=== PATIENT | male | born 1955 | race Caucasian/White ===

== ENCOUNTER 2017-01-15 08:34 | Day surgery (SDC) | payer MEDICARE, OTHER ==
[2017-01-14 14:13] VITALS: BMI 27.3
[2017-01-15 10:16] LABS: Hematocrit 46.3 % (42.0-52.0); Mean Platelet Volume 5.9 fL (7.4-10.4); Red Blood Cell (RBC) Count 4.81 mill/uL (4.70-6.10); White Blood Cell (WBC) Count 6.8 thou/uL (4.8-10.8)
[2017-01-15 10:24] LABS: PTT 33.1 SEC (22.9-36.1); Prothrombin Time 13.7 SEC (12.0-14.7)
[2017-01-15] MEDS ORDERED: Diprivan 20 ML ONE (10:30)
[2017-01-15] MEDS ORDERED: Fentanyl 100 MCG/2 ML VIAL ONE (10:30)
[2017-01-15 10:35] LABS: Anion Gap 13 mmol/L (10-20); BUN (Urea Nitrogen) 17 mg/dL (8.4-25.7); Calc. Creatinine Clearance 87 mL/min (70-130); Calcium 10.2 mg/dL (7.8-10.44); Carbon Dioxide 29 mmol/L (23-31); Chloride 100 mmol/L (98-107); Estimated GFR-MDRD 75
[2017-01-15] MEDS ORDERED: Propofol 200 MG/20 ML VIAL ONE (11:29)
[2017-01-15] MEDS ORDERED: Ondansetron HCl/PF 4 MG/2 ML Vial ONE (11:29)
[2017-01-15] MEDS ORDERED: PHENYLEPHRINE-NS 100 MCG/ML 10 ML SYRINGE ONE (11:29)
[2017-01-15] MEDS ORDERED: Lidocaine 1% w/Epinephrine 1:200K 30 ML VIAL ONE (11:29)
[2017-01-15] MEDS ORDERED: Lidocaine 2% PF 10 ML AMP (For Epidural Use) ONE (11:29)
[2017-01-15] MEDS ORDERED: Ophthalmic Irrigation Solution 15 ML ONE (12:09)
--- NOTE | 2017-01-16 09:24 | OP ---
DATE OF PROCEDURE: 01/15/2017 SURGEON: Dr. Edy Kaur PREOPERATIVE DIAGNOSIS: Basal cell carcinoma of the left nasolabial region. POSTOPERATIVE DIAGNOSES: Excision of left nasal labial malignant lesion measuring 1.5 cm. PROCEDURE PERFORMED: Excision of left nasal lesion with a nasolabial flap reconstruction mobilizing 4 cm of tissue. PROCEDURE IN DETAIL: After consent was obtained, the patient was identified, brought to the operati ng room and placed on the table in supine position. Monitored anesthesia care was delivered and the patient was positioned for surgery. The area was prepped and draped and infiltrated with 1% lidoca ine 1:10,000 epinephrine. We then made an excision of left nasolabial lesion with clear margins and clear margins were obtained. The excision measured approximately 1.5 cm. We then mobilized a sign ificant amount nasolabial tissue and made some relaxing incisions and was able to advance that tissu e in the defect and closed in a complex fashion with 5-0 Monocryl for the deep tissues and 6-0 Prole ne for the skin. Sterile dressing was applied after Steri-Strips were placed. The patient was then awakened and taken to recovery room where he remained in stable condition prior to discharge home.
--- NOTE | 2017-02-04 12:58 | OP ---
DATE OF PROCEDURE: 01/15/2017 SURGEON: Dr. Edy Kaur PREOPERATIVE DIAGNOSIS: Left basal cell carcinoma measuring 1.5 cm. POSTOPERATIVE DIAGNOSIS: Left basal cell carcinoma measuring 1.5 cm PROCEDURE PERFORMED: Excision of 2.1 cm left basal cell carcinoma with 4 centimeter nasolabial flap reconstruction. PROCEDURE IN DETAIL: After consent was obtained, the patient was identified, brought to the operati ng room and placed on the operative table in supine position. General monitored anesthesia care was delivered and the patient was positioned for surgery. This patient was prepped and draped with Bet adine and the area was infiltrated with 1% lidocaine 1:10,000 epinephrine. We then made an elliptic al incision around 1.5 cm lesion that measured approximately 2.1 cm and excised this tissue and sent for histologic evaluation. Margins were clear. We then mobilized the nasolabial flap by undermini ng the skin and making some relaxing incision along the nasal ala and nasolabial fold and advanced t hat skin into the defect. This was then sutured in place with a 5-0 Monocryl for the deep tissues, 6-0 Prolene for the skin. The patient was then awakened and taken to recovery room where he remaine d in stable condition prior to discharge home after sterile dressing was applied.
== END 2017-01-15 14:10 | disposition home or self-care (01) ==
LOC: SDC 08:34
PROVIDERS: ATTEND Specialist
PROC: 0HB1XZZ Excision of Face Skin, External Approach (ICD-10-PCS; principal; 2017-01-15)
DX: L57.0 Actinic keratosis (principal); L98.8 Other specified disorders of the skin and subcutaneous tissue; C76.8 Malignant neoplasm of other specified ill-defined sites; C76.0 Malignant neoplasm of head, face and neck; I25.10 Atherosclerotic heart disease of native coronary artery without angina pectoris; I48.91 Unspecified atrial fibrillation; I11.0 Hypertensive heart disease with heart failure; I50.9 Heart failure, unspecified; E03.9 Hypothyroidism, unspecified; E29.1 Testicular hypofunction; G47.33 Obstructive sleep apnea (adult) (pediatric); C79.89 Secondary malignant neoplasm of other specified sites; M19.90 Unspecified osteoarthritis, unspecified site; M10.9 Gout, unspecified; J45.909 Unspecified asthma, uncomplicated; Z79.01 Long term (current) use of anticoagulants; Z79.82 Long term (current) use of aspirin; Z79.899 Other long term (current) drug therapy; Z88.0 Allergy status to penicillin; Z88.8 Allergy status to other drugs, medicaments and biological substances; Z90.89 Acquired absence of other organs; Z90.79 Acquired absence of other genital organ(s); Z90.49 Acquired absence of other specified parts of digestive tract; Z98.890 Other specified postprocedural states; Z85.47 Personal history of malignant neoplasm of testis
CPT/HCPCS: 80048; 85027; 85610; 85730; 88305; 88331; 88332; J1833; J2001; J2405; J2704; J3010

== ENCOUNTER 2017-01-19 08:57 | Outpatient (CLI) | payer MEDICARE, OTHER ==
--- NOTE | 2017-01-19 10:27 | PRG ---
DATE OF SERVICE: 01/19/2017 HISTORY: Mr. Arturo Keen Jr. is a very pleasant 61-year-old gentleman who presents to the [facility] for evaluation of a wound of the left neck subsequent to pectoralis muscle myocutaneou s flap placement on 10/16/2015. Since the patient's last visit, Mr. Keen has been receiving dress ing changes of Promogran and Silverlon 3 times per week after cleansing and irrigation with the assi stance of Home Health. Mr. Keen has no complaints today. He denies any fever or chills. Since t he patient was last seen in the Wound Center, Mr. Keen has undergone excision of a basal cell carc inoma of the skin of the nose by Dr. Edy Kaur on 01/15/2017. PHYSICAL EXAMINATION: VITAL SIGNS: Temperature 98.1, pulse 79, respirations 18, and blood pressure 128/62. NECK: A wound of the left neck is present which measures approximately 2.0 x 2.8 cm. The dimension s of the wound at the time of the patient's last visit were approximately 2.4 x 1.4 cm. Nonviable t issue present within the wound margins was debrided with an excisional full-thickness debridement. Granulation tissue is visible within the wound margins. No purulent drainage is associated with the wound. No erythema of the skin surrounding the wound is present. No maceration of the skin of the periwound is noted. ASSESSMENT AND PLAN: 1. Left neck wound at the site of pectoralis muscle myocutaneous flap placement. Because of concer n of an allergy to SILVER, Silverlon will be discontinued at the time of dressing changes. Orders w ill be transmitted to Home Health for dressing changes of Promogran 3 times per week after cleansing and irrigation with the assistance of Home Health. I will see Mr. Keen again in 2 weeks. 2. Asthma/reactive airway disease. 3. Low back pain. 4. Testicular carcinoma, status post chemotherapy. 5. Cardiomyopathy. 6. Hypertension. 7. Obstructive sleep apnea. 8. Hypothyroidism. 9. Atrial fibrillation. 10. Coronary artery disease. 11. Benign prostatic hypertrophy. 12. Squamous cell carcinoma, status post radiation therapy.
[2017-01-19] MEDS ORDERED: Sodium Chloride 0.9% 15 ML NEB ONE (17:00)
== END 2017-01-19 08:58 | disposition home or self-care (01) ==
LOC: WCC 08:57
PROVIDERS: ATTEND Family Medicine
DX: T81.89XD Other complications of procedures, not elsewhere classified, subsequent encounter (principal); C62.90 Malignant neoplasm of unspecified testis, unspecified whether descended or undescended; I25.10 Atherosclerotic heart disease of native coronary artery without angina pectoris; I48.91 Unspecified atrial fibrillation; J45.909 Unspecified asthma, uncomplicated; E03.9 Hypothyroidism, unspecified; G47.33 Obstructive sleep apnea (adult) (pediatric); N40.0 Benign prostatic hyperplasia without lower urinary tract symptoms; I42.9 Cardiomyopathy, unspecified; I10 Essential (primary) hypertension; M54.5 Low back pain; C80.1 Malignant (primary) neoplasm, unspecified; Z92.21 Personal history of antineoplastic chemotherapy; Z92.3 Personal history of irradiation
CPT/HCPCS: 11042; A4218

== ENCOUNTER 2017-02-02 09:41 | Outpatient (CLI) | payer MEDICARE, OTHER ==
--- NOTE | 2017-02-02 11:02 | PRG ---
DATE OF SERVICE: 02/02/2017 HISTORY: Mr. Arturo Keen Jr. is a very pleasant 61-year-old gentleman who presents to the Wound Center for evaluation of a wound of the left neck subsequent to pectoralis muscle myocutaneou s flap placement on 10/16/2015. Since the patient's last visit, Mr. Keen has been receiving dress ing changes of Promogran 3 times per week after cleansing and irrigation with the assistance of Home Health. The patient has no complaints today. He denies any fever or chills. The patient recently underwent excision of a basal cell carcinoma of the skin of the nose by Dr. Edy Mas on 2016. PHYSICAL EXAMINATION: VITAL SIGNS: Temperature 98.6, pulse 73, respirations 18, blood pressure 125/60. NECK: A wound of the left neck is present which measures approximately 2.0 x 4.0 cm. The dimension s of the wound at the time of the patient's last visit were approximately 2.0 x 2.8 cm. Nonviable t issue present within the wound margins was debrided with an excisional full-thickness debridement. Granulation tissue is visible within the wound margins. No purulent drainage is associated with the wound. No erythema of the skin surrounding the wound is present. No maceration of the skin of the periwound is noted. ASSESSMENT AND PLAN: 1. Left neck wound at the site of pectoralis muscle myocutaneous flap placement. Dressing changes of Promogran will be discontinued. Dressing changes of Multidex powder followed by an ABD secured w ith tape will be initiated today. These dressing changes are to be performed on a daily basis after cleansing and irrigation with the assistance of Home Health for the next 2 weeks. I will see Mr. Montrell dash again in 2 weeks. 2. Asthma/reactive airway disease. 3. Low back pain. 4. Testicular carcinoma, status post chemotherapy. 5. Cardiomyopathy. 6. Hypertension. 7. Obstructive sleep apnea. 8. Hypothyroidism. 9. Atrial fibrillation. 10. Coronary artery disease. 11. Benign prostatic hypertrophy. 12. Squamous cell carcinoma, status post radiation therapy.
[2017-02-02] MEDS ORDERED: Sodium Chloride 0.9% 15 ML NEB ONE (17:24)
== END 2017-02-02 09:42 | disposition home or self-care (01) ==
LOC: WCC 09:41
PROVIDERS: ATTEND Family Medicine
DX: S11.90XD Unspecified open wound of unspecified part of neck, subsequent encounter (principal); I25.10 Atherosclerotic heart disease of native coronary artery without angina pectoris; J45.909 Unspecified asthma, uncomplicated; G47.33 Obstructive sleep apnea (adult) (pediatric); I10 Essential (primary) hypertension; I48.91 Unspecified atrial fibrillation; E03.9 Hypothyroidism, unspecified; I42.9 Cardiomyopathy, unspecified; N40.0 Benign prostatic hyperplasia without lower urinary tract symptoms
CPT/HCPCS: 11042; A4218

== ENCOUNTER 2017-02-16 07:51 | Outpatient (CLI) | payer MEDICARE, OTHER ==
--- NOTE | 2017-02-16 10:12 | PRG ---
DATE OF SERVICE: 02/16/2017 HISTORY: Mr. Arturo Keen is a very pleasant 61-year-old gentleman who presents to the Wound Cent er for evaluation of a wound of the left neck subsequent to pectoralis muscle myocutaneous flap plac ement on 10/16/2015. Since the patient's last visit, Mr. Keen has been receiving dressing changes of Multidex powder 3 times per week after cleansing and irrigation with the assistance of Home [facility]. The patient has no complaints today. He denies any fever or chills. The patient recently unde rwent excision of basal cell carcinoma of the skin of the nose by Dr. Edy Kaur on 01/15/2017. PHYSICAL EXAMINATION: VITAL SIGNS: Temperature 98.3, pulse 75, respirations 18, blood pressure 115/55. NECK: A wound of the left neck is present, which measures approximately 7.5 x 11.5 cm. Granulation tissue is visible within the wound margins. Nonviable tissue present within the wound margins was debrided with an excisional full-thickness debridement. No purulent drainage is associated with the wound. No erythema of the skin surrounding the wound is present. No maceration of the skin of the periwound is noted. ASSESSMENT AND PLAN: 1. Left neck wound at the site of pectoralis muscle myocutaneous flap placement. Dressing changes of Multidex powder will be discontinued. Dressing changes of Adaptic followed by an ABD secured wit h tape will be initiated today. These dressing changes are to be performed 3 times per week after c leansing and irrigation with the assistance of Home Health for the next 2 weeks. I will see Mr. Eugene galeana again in 2 weeks. 2. Asthma/reactive airway disease. 3. Low back pain. 4. Testicular carcinoma, status post chemotherapy. 5. Cardiomyopathy. 6. Hypertension. 7. Obstructive sleep apnea. 8. Hypothyroidism. 9. Atrial fibrillation. 10. Coronary artery disease. 11. Benign prostatic hypertrophy. 12. Squamous cell carcinoma, status post radiation therapy.
[2017-02-16] MEDS ORDERED: Sodium Chloride 0.9% 15 ML NEB ONE (17:06)
== END 2017-02-16 07:52 | disposition home or self-care (01) ==
LOC: WCC 07:51
PROVIDERS: ATTEND Family Medicine
DX: S11.90XD Unspecified open wound of unspecified part of neck, subsequent encounter (principal); J45.909 Unspecified asthma, uncomplicated; C62.90 Malignant neoplasm of unspecified testis, unspecified whether descended or undescended; I42.9 Cardiomyopathy, unspecified; I10 Essential (primary) hypertension; G47.33 Obstructive sleep apnea (adult) (pediatric); E03.9 Hypothyroidism, unspecified; N40.0 Benign prostatic hyperplasia without lower urinary tract symptoms; I48.91 Unspecified atrial fibrillation; I25.10 Atherosclerotic heart disease of native coronary artery without angina pectoris; C80.1 Malignant (primary) neoplasm, unspecified
CPT/HCPCS: A4218

== ENCOUNTER 2017-03-02 07:48 | Outpatient (CLI) | payer MEDICARE, OTHER ==
--- NOTE | 2017-03-02 09:16 | PRG ---
DATE OF SERVICE: 03/02/2017 HISTORY: Mr. Arturo Keen is a very pleasant 61-year-old gentleman who presents to the Wound Cent er for evaluation of a wound of the left neck subsequent to pectoralis muscle myocutaneous flap plac ement on 10/16/2015. Since the patient's last visit, Mr. Keen had been receiving dressing changes of Adaptic 3 times per week after cleansing and irrigation with the assistance of Home Health. The patient states that he is to be seen at [facility] next week. The patient underwent excision of basal cell carcinoma of the skin of the nose by Dr. Edy Kaur on 01/15/2017. PHYSICAL EXAMINATION: VITAL SIGNS: Temperature 98.2, pulse 86, respirations 18, blood pressure 109/58. NECK: A wound of the left neck is present which measures approximately 8.1 x 12.0 cm. The dimensio ns of the wound at the time of the patient's last visit were approximately 7.5 x 11.5 cm. Granulati on tissue is visible within the wound margins. No purulent drainage is associated with the wound. No erythema of the skin surrounding the wound is present. No maceration of the skin of the periwoun d is noted. ASSESSMENT AND PLAN: 1. Left neck wound at the site of pectoralis muscle myocutaneous flap placement. Dressing changes of Adaptic will be discontinued. Dressing changes of Hydrofera Blue followed by an ABD secured with tape will be initiated today. These dressing changes are to be performed on a daily basis after cl eansing and irrigation with the assistance of Home Health until the patient is seen at [facility] . I will see Mr. Keen again after he is seen at [facility] and any treatment initiated. 2. Asthma/reactive airway disease. 3. Low back pain. 4. Testicular carcinoma, status post chemotherapy. 5. Cardiomyopathy. 6. Hypertension. 7. Obstructive sleep apnea. 8. Hypothyroidism. 9. Atrial fibrillation. 10. Coronary artery disease. 11. Benign prostatic hypertrophy. 12. Squamous cell carcinoma, status post radiation therapy.
[2017-03-02] MEDS ORDERED: Sodium Chloride 0.9% 15 ML NEB ONE (22:48)
== END 2017-03-02 07:49 | disposition home or self-care (01) ==
LOC: WCC 07:48
PROVIDERS: ATTEND Family Medicine
DX: T81.89XD Other complications of procedures, not elsewhere classified, subsequent encounter (principal); C62.90 Malignant neoplasm of unspecified testis, unspecified whether descended or undescended; C80.1 Malignant (primary) neoplasm, unspecified; I42.9 Cardiomyopathy, unspecified; J45.909 Unspecified asthma, uncomplicated; M54.5 Low back pain; I10 Essential (primary) hypertension; G47.33 Obstructive sleep apnea (adult) (pediatric); E03.9 Hypothyroidism, unspecified; I48.91 Unspecified atrial fibrillation; I25.10 Atherosclerotic heart disease of native coronary artery without angina pectoris; N40.0 Benign prostatic hyperplasia without lower urinary tract symptoms; Z92.21 Personal history of antineoplastic chemotherapy; Z92.3 Personal history of irradiation
CPT/HCPCS: 97602; A4218

== ENCOUNTER 2017-03-05 06:00 | Day surgery (SDC) | payer MEDICARE, OTHER ==
[2017-03-04 13:58] VITALS: BMI 27.3
[2017-03-05] MEDS ORDERED: Midazolam HCl 2 mg/2 ml Vial ONE (06:28)
[2017-03-05] MEDS ORDERED: Fentanyl 100 MCG/2 ML VIAL ONE (06:28)
[2017-03-05] MEDS ORDERED: Heparin 5,000 UNITS/ML VIAL ONE (06:43)
[2017-03-05] MEDS ORDERED: Bupivacaine/Epinephrine 0.25% 30 ML VIAL ONE (06:43)
[2017-03-05] MEDS ORDERED: Levofloxacin 500 mg/D5W 100 ml Premix Bag ONE (06:45)
[2017-03-05 06:49] LABS: #Eosinphils 0.1 thou/uL (0.0-0.7); #Lymphocytes 0.5 thou/uL (1.20-3.40); #Monocytes 0.4 thou/uL (0.11-0.59); #Neutrophils 2.3 thou/uL (1.40-6.50); %Basophils 0.9 % (0.0-1.0); %Eosinophils 2.6 % (0.0-10.0); %Lymphocytes 14.1 % (21.0-51.0); %Monocytes 13.2 % (0.0-10.0); Hematocrit 38.6 % (42.0-52.0); Mean Platelet Volume 5.6 fL (7.4-10.4); Red Blood Cell (RBC) Count 3.99 mill/uL (4.70-6.10); White Blood Cell (WBC) Count 3.4 thou/uL (4.8-10.8)
[2017-03-05 07:02] LABS: Anion Gap 10 mmol/L (10-20); BUN (Urea Nitrogen) 18 mg/dL (8.4-25.7); Calc. Creatinine Clearance 92 mL/min (70-130); Calcium 9.8 mg/dL (7.8-10.44); Carbon Dioxide 29 mmol/L (23-31); Chloride 97 mmol/L (98-107); Estimated GFR-MDRD 80
[2017-03-05] MEDS ORDERED: Lidocaine 1% PF 5 ML VIAL ONE (07:55)
[2017-03-05] MEDS ORDERED: Propofol 200 MG/20 ML VIAL ONE (07:55)
--- NOTE | 2017-03-05 09:23 | RAD ---
FRONTAL VIEW CHEST SERIES: COMPARISON: 05/28/14. CLINICAL HISTORY: MediPort placement. FINDINGS: Right-sided venous chest port has been placed with tip overlying SVC region. There is right-sided pl eural fluid at the anterior hemithorax and traversing along the pulmonary fissure. There is asymmetr ic increased interstitial prominence of the right lung with superimposed patchy alveolar opacificatio n. There remains elevation of the left hemidiaphragm. Cardiomediastinal silhouette is stable, promi nent in size with evidence of vascular congestion. IMPRESSION: 1. Right-side MediPort placement without discrete pneumothorax. 2. There is right-side pleural fluid and asymmetric interstitial reticulonodular/patchy alveolar opa cification. This could be on the basis of atypical pneumonia or asymmetric edema. [facility] POS: [facility]
--- NOTE | 2017-03-06 22:08 | PDOC.OP ---
Operative Note - Operative Note Operative Note: PROCEDURE: Right internal jugular MediPort placement with ultrasound and fluoroscopic guidance SURGEON: Jenniffer Knowles M.D. DATE OF PROCEDURE: 03/05/2017 PREOPERATIVE DIAGNOSIS: Metastatic squamous cell carcinoma of the skin POSTOPERATIVE DIAGNOSIS: Metastatic squamous cell carcinoma of the skin HISTORY: Patient is diagnosed with metastatic squamous cell carcinoma of the skin. Chemotherapy has been recommended and the oncologist has requested MediPort placement for this. OPERATIVE PROCEDURE IN DETAIL: After informed consent was obtained and appropriate preoperative antibiotics were administered, the patient was taken to the operating room and placed in supine position and monitored anesthesia care was administered. The patient was then placed in Trendelenburg position and the right internal jugular vein accessed easily under direct ultrasonographic guidance on the first attempt with excellent flow of dark venous non-pulsatile blood. A wire threaded easily and was confirmed to be in the superior vena cava by fluoroscopy. Additional local anesthesia was infused to the skin and subcutaneous tissues of the neck and chest and the patient's previous Mediport incision re-incised and a subcutaneous pocket developed inferiorly. A Mediport was obtained and confirmed to fit in the subcutaneous pocket. This was secured inferiorly to the pectoralis fascia with a Prolene suture, which was clamped, but not tied. The tubing was tunneled from the Mediport site to the right IJ access site. The dilator and sheath were then placed over the wire and the dilator and wire removed leaving the sheath in place. The clamped MediPort tubing was tunneled through the sheath, which was then split and removed leaving the MediPort tubing in place. The tubing was adjusted until the tip was confirmed by fluoroscopy to be in the superior vena cava just above the atrium. The tubing was clamped at the skin level and cut and the tubing secured to the port, which was then placed in the subcutaneous pocket. The previously placed suture was secured and two additional sutures were placed to fix the port in place within the pocket. The port was aspirated with the Aparicio needle and had excellent flow of dark venous non-pulsatile blood and easily flushed without resistance. The subcutaneous tissues were closed with a running Monocryl suture, following which the skin was closed with a running subcuticular Monocryl suture. Dermabond dressings were placed and the hub was again accessed through the skin and confirmed to easily aspirate and easily flush. This Aparicio needle was left in place with a sterile dressing for chemotherapy use later that day. The course of the catheter was confirmed by fluoroscopy to be smooth with the tip appropriately located in the superior vena cava. The patient was taken her back to the day stay unit in good condition. Estimated blood loss was minimal. There were no complications. There were no specimens.
== END 2017-03-05 09:40 | disposition home or self-care (01) ==
LOC: SDC 06:00
PROVIDERS: ATTEND Surgery
PROC: 05HM33Z Insertion of Infusion Device into Right Internal Jugular Vein, Percutaneous Approach (ICD-10-PCS; principal; 2017-03-05)
DX: C44.92 Squamous cell carcinoma of skin, unspecified (principal); I25.10 Atherosclerotic heart disease of native coronary artery without angina pectoris; I48.91 Unspecified atrial fibrillation; E78.5 Hyperlipidemia, unspecified; I11.0 Hypertensive heart disease with heart failure; I50.9 Heart failure, unspecified; E03.9 Hypothyroidism, unspecified; Z88.0 Allergy status to penicillin; Z88.1 Allergy status to other antibiotic agents; Z88.8 Allergy status to other drugs, medicaments and biological substances; Z98.890 Other specified postprocedural states
CPT/HCPCS: 36561; 71010; 80048; 85025; C1788; J0131; J1642; J1644; J1956; J2001; J2250; J2704; J3010

== ENCOUNTER 2017-03-16 19:08 | Emergency (ER) | payer MEDICARE, OTHER ==
--- NOTE | 2017-03-16 19:58 | RAD ---
CHEST: Date: 03/16/17 HISTORY: Emergency exam. Fever. COMPARISON: Chest 1 view dated 03/05/17. FINDINGS: There is redistribution of the layering right pleural effusion. Port catheter tip in similar position . Chronic elevation left hemidiaphragm. IMPRESSION: 1. Redistribution of the layering right pleural effusion. 2. Possible right lower lobe air space opacity may represent infection or compressive atelectasis. F ollow-up recommended. POS: [facility]
[2017-03-16 20:18] LABS: #Lymphocytes 0.4 thou/uL (1.20-3.40); #Monocytes 0.3 thou/uL (0.11-0.59); #Neutrophils 1.6 thou/uL (1.40-6.50); %Basophils 2.1 % (0.0-1.0); %Eosinophils 1.3 % (0.0-10.0); %Lymphocytes 16.5 % (21.0-51.0); %Monocytes 10.8 % (0.0-10.0); Hematocrit 31.7 % (42.0-52.0); Red Blood Cell (RBC) Count 3.42 mill/uL (4.70-6.10); White Blood Cell (WBC) Count 2.3 thou/uL (4.8-10.8)
[2017-03-16] MEDS ORDERED: Cefepime 1 GM VIAL ONE (20:33)
[2017-03-16] MEDS ORDERED: methylPREDNISolone Sod Succ/PF 125 MG/2 ML VIAL ONE (20:33)
[2017-03-16 20:35] LABS: ALT (SGPT) 15 U/L (8-55); AST (SGOT) 18 U/L (5-34); Alkaline Phosphatase 94 U/L (40-150); Anion Gap 12 mmol/L (10-20); BUN (Urea Nitrogen) 24 mg/dL (8.4-25.7); Bilirubin, Total 0.6 mg/dL (0.2-1.2); Calc. Creatinine Clearance 0 mL/min (70-130); Calcium 9.3 mg/dL (7.8-10.44); Carbon Dioxide 28 mmol/L (23-31); Chloride 95 mmol/L (98-107); Estimated GFR-MDRD 57; Globulin 3.1 g/dL (2.4-3.5); Protein, Total 6.6 g/dL (5.8-8.1)
[2017-03-16] MEDS ORDERED: Sodium Chloride 0.9% 100 ML ONE (20:35)
== END 2017-03-16 21:57 | disposition home or self-care (01) ==
LOC: SCSER 19:08
DX: J44.0 Chronic obstructive pulmonary disease with (acute) lower respiratory infection (principal); J18.9 Pneumonia, unspecified organism; J44.1 Chronic obstructive pulmonary disease with (acute) exacerbation; J20.9 Acute bronchitis, unspecified; I50.9 Heart failure, unspecified; E03.9 Hypothyroidism, unspecified; I48.91 Unspecified atrial fibrillation; I25.10 Atherosclerotic heart disease of native coronary artery without angina pectoris
CPT/HCPCS: 36415; 71020; 80053; 85025; 87040; 87070; 87205; 96365; 96367; 96375; J0692; J2930; J3370; J7050; J7620

== ENCOUNTER 2017-05-13 08:22 | Day surgery (SDC) | payer MEDICARE, OTHER ==
[2017-05-13] MEDS ORDERED: Acetaminophen 500 MG TAB PO SCH (08:45)
[2017-05-13] MEDS ORDERED: diphenhydrAMINE 25 MG CAP PO SCH (08:45)
[2017-05-13 15:00] VITALS: BP 118/58; TEMP 99.1
[2017-05-13 15:18] LABS: #Eosinphils 0.1 thou/uL (0.0-0.7); #Lymphocytes 0.5 thou/uL (1.20-3.40); #Monocytes 0.3 thou/uL (0.11-0.59); #Neutrophils 1.7 thou/uL (1.40-6.50); %Basophils 0.7 % (0.0-1.0); %Eosinophils 2.1 % (0.0-10.0); %Lymphocytes 20.5 % (21.0-51.0); %Monocytes 9.8 % (0.0-10.0); %Neutrophils 66.9 % (42.0-75.0); Hemoglobin 9.6 g/dL (14.0-18.0); Mean Corpuscular HGB CONC 35.6 g/dL (32.0-36.0); Mean Platelet Volume 8.2 fL (7.4-10.4); Platelet Count 61 thou/uL (130-400); RBC Distribution Width 17.8 % (11.5-14.5); Red Blood Cell (RBC) Count 2.66 mill/uL (4.70-6.10); White Blood Cell (WBC) Count 2.5 thou/uL (4.8-10.8)
[2017-05-13 16:21] LABS: Anisocytosis MODERATE=16-30 cells (100X) (0-5/hpf); MDiff Complete? YES; Macrocytosis SLIGHT = 6-15 cells (100X) (0-5/hpf); Ovalocytes SLIGHT = 2-5 cells (100X) (0-1/hpf); PLT Morphology Comment Appears Decreased; Polychromasia SLIGHT = 2-3 cells (100X) (0-2/hpf)
== END 2017-05-13 14:50 | disposition home or self-care (01) ==
LOC: ONC/OP 08:22
PROVIDERS: ATTEND Internal Medicine Hematology & Oncology
PROC: 30233N1 Transfusion of Nonautologous Red Blood Cells into Peripheral Vein, Percutaneous Approach (ICD-10-PCS; principal; 2017-05-13)
DX: D64.9 Anemia, unspecified (principal); D69.59 Other secondary thrombocytopenia; Z88.0 Allergy status to penicillin; Z88.1 Allergy status to other antibiotic agents; Z88.8 Allergy status to other drugs, medicaments and biological substances
CPT/HCPCS: 36430; 85025; 86850; 86900; 86901; P9016

== ENCOUNTER 2017-05-16 00:20 | Observation (INO) | payer MEDICARE, OTHER ==
[2017-05-16] MEDS ORDERED: Oxymetazoline HCl 0.05% ( 15 ML ) ONE (00:40)
[2017-05-16 01:16] LABS: Hemoglobin 9.7 g/dL (14.0-18.0); Mean Corpuscular HGB CONC 33.6 g/dL (32.0-36.0); Mean Corpuscular Hemoglobin 32.8 pg (27.0-31.0); Mean Corpuscular Volume 97.7 fl (80.0-94.0); Mean Platelet Volume 7.5 fL (7.4-10.4); Platelet Count 64 thou/uL (130-400); RBC Distribution Width 16.7 % (11.5-14.5); Red Blood Cell (RBC) Count 2.96 mill/uL (4.70-6.10); White Blood Cell (WBC) Count 2.5 thou/uL (4.8-10.8)
[2017-05-16 01:24] LABS: INR-International Normal Ratio 2.3; Prothrombin Time 25.8 SEC (12.0-14.7)
[2017-05-16 01:28] LABS: #Basophils 0.1 thou/uL (0.0-0.2); #Eosinphils 0.1 thou/uL (0.0-0.7); #Lymphocytes 0.5 thou/uL (1.20-3.40); #Monocytes 0.3 thou/uL (0.11-0.59); #Neutrophils 1.6 thou/uL (1.40-6.50); %Basophils 2.8 % (0.0-1.0); %Eosinophils 2.2 % (0.0-10.0); %Lymphocytes 18.3 % (21.0-51.0); %Monocytes 11.2 % (0.0-10.0); %Neutrophils 65.6 % (42.0-75.0); Anisocytosis SLIGHT = 6-15 cells (100X) (0-5/hpf); Hypochromia SLIGHT = 6-15 cells (100X) (0-5/hpf); MDiff Complete? YES; PLT Morphology Comment Appears Decreased
[2017-05-16 01:29] LABS: ALT (SGPT) 11 U/L (8-55); AST (SGOT) 14 U/L (5-34); Alkaline Phosphatase 97 U/L (40-150); Anion Gap 16 mmol/L (10-20); BUN (Urea Nitrogen) 20 mg/dL (8.4-25.7); Calcium 9.5 mg/dL (7.8-10.44); Carbon Dioxide 24 mmol/L (23-31); Chloride 101 mmol/L (98-107); Glucose 99 mg/dL (80-115); Potassium 4.2 mmol/L (3.5-5.1); Protein, Total 7.1 g/dL (5.8-8.1); Sodium 137 mmol/L (136-145)
[2017-05-16 01:40] LABS: Albumin 3.6 g/dL (3.4-4.8); Bilirubin, Total 0.5 mg/dL (0.2-1.2); Calc. Creatinine Clearance 0 mL/min (70-130); Estimated GFR-MDRD 68; Globulin 3.5 g/dL (2.4-3.5)
[2017-05-16] MEDS ORDERED: Ondansetron HCl/PF 4 MG/2 ML Vial ONE (02:22)
[2017-05-16] MEDS ORDERED: Fentanyl 100 MCG/2 ML VIAL ONE (02:22)
[2017-05-16] MEDS ORDERED: Ondansetron HCl/PF 4 MG/2 ML Vial IVP PRN ×2 (04:48→11:56)
[2017-05-16] MEDS ORDERED: Ondansetron ODT 4 MG TAB SL PRN (04:48)
[2017-05-16] MEDS ORDERED: Acetaminophen 325 MG TAB PO PRN (04:48)
[2017-05-16 04:54] VITALS: BMI 26.9
[2017-05-16] MEDS ORDERED: PROVENTIL INHALER 6.7 G (200 INHALATIONS) INH PRN (11:56)
[2017-05-16] MEDS ORDERED: hydrALAZINE 20 MG/ML VIAL SLOW IVP PRN (11:56)
[2017-05-16] MEDS ORDERED: cloNIDine 0.1 MG TAB PO PRN (11:56)
[2017-05-16] MEDS ORDERED: Acetaminophen 500 MG TAB PO PRN (11:56)
[2017-05-16] MEDS ORDERED: Ondansetron ODT 4 MG TAB PO PRN (11:56)
[2017-05-16 13:05] LABS: Hemoglobin 9.1 g/dL (14.0-18.0); Mean Corpuscular HGB CONC 34.9 g/dL (32.0-36.0); Mean Corpuscular Hemoglobin 35.9 pg (27.0-31.0); Mean Platelet Volume 8.3 fL (7.4-10.4); Platelet Count 57 thou/uL (130-400); RBC Distribution Width 17.9 % (11.5-14.5); Red Blood Cell (RBC) Count 2.52 mill/uL (4.70-6.10); White Blood Cell (WBC) Count 2.4 thou/uL (4.8-10.8)
[2017-05-16 13:18] LABS: Anisocytosis MODERATE=16-30 cells (100X) (0-5/hpf); Band 6 % (5-11); Elliptocytes SLIGHT = 2-5 cells (100X) (0-1/hpf); Eosinophils 1 % (0-10); Lymphocytes 15 % (21-51); MDiff Complete? YES; Macrocytosis SLIGHT = 6-15 cells (100X) (0-5/hpf); Monocytes 16 % (0-10); Neutrophil 59 % (42-75); Ovalocytes SLIGHT = 2-5 cells (100X) (0-1/hpf); PLT Morphology Comment Appears Decreased; Polychromasia SLIGHT = 2-3 cells (100X) (0-2/hpf); Reactive Lymphocytes 3 % (0-10)
[2017-05-16] MEDS: Fentanyl 100 MCG/2 ML VIAL SLOW IVP PRN ×2 (14:31→20:43)
--- NOTE | 2017-05-16 15:21 | HP ---
DATE OF ADMISSION: 05/16/2017 PRIMARY CARE PROVIDER: Ulises broderick. CHIEF COMPLAINT: Nosebleed. HISTORY OF PRESENT ILLNESS: This is a 61-year-old male who presented to [facility] Emergency Department complaining of sudden spontaneous nose bleeding which began appr oximately 2300 on 05/15/2017. The patient's history is significant for chronic anticoagulation with Xarelto with a history of prior atrial fibrillation, status post cardiac ablation x6. The patient al so on chronic aspirin 81 mg daily as well as receiving chemotherapy for metastatic squamous cell carc inoma of the head and neck. The patient states he completed his last chemotherapy within the last we ek and a half and took last dose of Xarelto approximately 2000 p.m. on 05/15/2017. The patient state s the nosebleed was significant and prompting him to seek medical attention. The patient was evaluat ed in the emergency room, undergoing topical treatment with Mo-Synephrine without resolution. The p atient was evaluated by the ENT Service in the emergency room, undergoing anterior and posterior nasa l packing with Surgicel and Gelfoam. The patient had hemostasis obtained in the emergency room and w as transferred to the observation unit for further evaluation. PAST MEDICAL HISTORY: 1. Chronic obstructive pulmonary disease. 2. History of atrial fibrillation, status post cardiac ablation x6 on chronic anticoagulation with X arelto. 3. Hypothyroidism. 4. Coronary artery disease. 5. Benign prostatic hyperplasia. 6. Metastatic squamous cell carcinoma of the head and neck. 7. History of testicular cancer. 8. Status post multiple blood transfusions. 9. Hypertension. 10. Congestive heart failure. 11. Hypogonadism. PAST SURGICAL HISTORY: 1. Status post left parotidectomy on 05/26/2014. 2. Status post abdominal exploration with multiple lymph node resections. 3. Status post orchiectomy. 4. Status post multiple facial excisions for skin cancer and grafting. 5. Status post left eardrum removal. 6. Status post left ear surgery for squamous cell carcinoma. 7. Status post basal cell carcinoma removal. 8. Status post MediPort placement. 9. Status post appendectomy. 10. Status post left foot surgery. CURRENT MEDICATIONS: 1. ProAir HFA 2 puffs inhaled q.4 hours p.r.n. 2. Enteric coated aspirin 81 mg 1 tab p.o. daily. 3. Lipitor 40 mg p.o. at bedtime. 4. Vitamin D3 2000 units p.o. daily. 5. Digoxin 125 mcg p.o. daily. 6. Colace 100 mg p.o. b.i.d. p.r.n. 7. Tambocor 50 mg p.o. b.i.d. 8. Breo Ellipta one inhalation daily. 9. Monopril 10 mg p.o. b.i.d. 10. Hydrocodone/acetaminophen 7.5/325 mg per 15 mL p.o. q.4 hours p.r.n. 11. DuoNebs 3 mL nebulized q.i.d. p.r.n. 12. Levothyroxine 75 mcg 1 tab p.o. daily. 13. Claritin 10 mg 1 tab p.o. daily. 14. Singulair 10 mg p.o. at bedtime. 15. Xarelto 20 mg p.o. at bedtime. 16. Bactrim-DS 1 tablet p.o. b.i.d. 17. Testosterone cypionate 200 mg intramuscularly every 14 days. 18. Demodex 20 mg p.o. q.a.m. ALLERGIES: BENZODIAZEPINES, CLINDAMYCIN, and PENICILLIN. FAMILY HISTORY: Positive for coronary artery disease. SOCIAL HISTORY: Patient resides in [place], [place]. Retired. No current alcohol, tobacco or illicit drug use. REVIEW OF SYSTEMS: The following complete review of systems was negative, unless otherwise mentioned in the HPI or below: Constitutional: Weight loss or gain, ability to conduct usual activities. Skin: Rash, itching. Eyes: Double vision, pain. ENT/Mouth: Nose bleeding, neck stiffness, pain, tenderness. Cardiovascular: Palpitations, dyspnea on exertion, orthopnea. Respiratory: Shortness of breath, wheezing, cough, hemoptysis, fever or night sweats. Gastrointestinal: Poor appetite, abdominal pain, heartburn, nausea, vomiting, constipation, or diarr hea. Genitourinary: Urgency, frequency, dysuria, nocturia. Musculoskeletal: Pain, swelling. Neurologic/Psychiatric: Anxiety, depression. Allergy/Immunologic: Skin rash, bleeding tendency. Otherwise negative except as stated per HPI. PHYSICAL EXAMINATION: VITAL SIGNS: Currently, blood pressure 119/63, pulse 93, respiratory rate is 16, temperature 98.1 de grees Fahrenheit, and O2 saturation 97% on room air. GENERAL APPEARANCE: This is a 61-year-old male, alert and oriented x3, pleasant, in no acu te distress. HEENT: Pupils are equal, round, and reactive to light and accommodation. Extraocular muscles are in tact. Postsurgical changes on the left face, head and neck region consistent with prior surgical his tory. Large wound of the left trapezius region and left neck region with wound dressings in place. Nasal packing in place with bandages showing pink discharge. OP is clear. NECK: Supple. Surgical and radiation changes noted to the left neck region. CHEST: Lungs are clear to auscultation bilaterally. CARDIOVASCULAR: S1 and S2 with distant heart sounds. Postsurgical changes noted in the left upper c hest wall and shoulder region. Right-sided MediPort in place. ABDOMEN: Rounded, soft, nontender, and nondistended. Bowel sounds are positive in all four quadrant s. No hepatosplenomegaly, no abdominal bruits, no rebound or guarding appreciated. EXTREMITIES: Warm and dry with fair turgor. No clubbing, cyanosis or asymmetric edema appreciated. Pulses palpable distally at the dorsalis pedis, posterior tibial, and popliteal arteries bilaterally . Capillary refill less than 2 seconds. NEUROLOGIC: Cranial nerves II-XII are grossly intact. No focal or lateralizing signs appreciated. PERTINENT LABORATORY DATA: Basic metabolic profile within normal limits. LFTs within normal limits. CBC showed white blood cell count of 2.5, hemoglobin 9.7, hematocrit 29, MCV 98, platelet count 64. PT 25.8, INR 2.3. ASSESSMENT AND PLAN: 1. Acute epistaxis secondarily coagulopathy due to Xarelto, aspirin and chemotherapy. Patient will be observed on the telemetry unit. The patient is status post anterior and posterior nasal packing w ith Gelfoam/SURGISEAL. Hemostasis apparently obtained currently. We will continue observation for r ecurrence. ENT consulted and following the patient. Hold all anticoagulation, aspirin and monitor c linically. 2. Chronic anticoagulation with Xarelto. Hold anticoagulation indefinitely until evaluation by Card iology Service. High risk for recurrent epistaxis. 3. Advanced metastatic squamous cell carcinoma of the head and neck with chemotherapy. We will cont inue supportive measures. Pain control with fentanyl 50 mcg IV q.4 hours p.r.n. 4. Pancytopenia secondary to chemotherapy. Continue serial hemoglobin and hematocrit monitoring. R epeat CBC. 5. Chronic obstructive pulmonary disease. We will resume home regimen to include ProAir HFA, DuoNeb s, Singulair and Breo Ellipta. 6. Hypothyroidism. Resume levothyroxine 75 mcg p.o. daily. 7. Prophylaxis. Sequential compression devices while in bed. Pepcid 20 mg p.o. b.i.d. 8. Code status is FULL. Surrogate medical decision maker is patient's sister, Geetha Keen.
[2017-05-16] MEDS: Mometasone/Formoterol 120 PUFF INHALER INH SCH (19:45)
[2017-05-16] MEDS: Flecainide 50 MG TAB PO SCH (20:46)
[2017-05-16] MEDS: Famotidine 20 MG TAB PO SCH (20:46)
[2017-05-16] MEDS: Sulfameth/Trimethoprim DS 800-160mg TAB PO SCH (20:46)
[2017-05-16] MEDS ORDERED: Montelukast Sodium 10 mg Tablet PO SCH (21:00)
[2017-05-16] MEDS ORDERED: FLECAINIDE ACETATE 50 MG PO SCH (21:00)
[2017-05-16] MEDS: Hydrocodone-Acetamin 15 ML UDCUP PO PRN (22:45)
[2017-05-17] MEDS: Fentanyl 100 MCG/2 ML VIAL SLOW IVP PRN (02:06)
[2017-05-17] MEDS: Hydrocodone-Acetamin 15 ML UDCUP PO PRN ×2 (05:18→09:31)
[2017-05-17] MEDS ORDERED: Levothyroxine Sodium 75 MCG TAB PO SCH ×2 (06:00→09:00)
[2017-05-17] MEDS: Mometasone/Formoterol 120 PUFF INHALER INH SCH (06:45)
[2017-05-17 08:03] VITALS: BP 133/60; TEMP 97.5
[2017-05-17] MEDS ORDERED: Non-Formulary Item 1 EACH (Cholecalciferol (Vitamin D3) [Vitamin D3] 2,000 UNIT) PO SCH (09:00)
[2017-05-17] MEDS ORDERED: Non-Formulary Item 1 EACH (Fluticasone/Vilanterol [Breo Ellipta] 1 INH) IH SCH (09:00)
[2017-05-17] MEDS ORDERED: Digoxin 0.125 MG TAB PO SCH ×2 (09:00)
[2017-05-17] MEDS: Flecainide 50 MG TAB PO SCH (09:31)
[2017-05-17] MEDS: Sulfameth/Trimethoprim DS 800-160mg TAB PO SCH (09:31)
[2017-05-17] MEDS: Famotidine 20 MG TAB PO SCH (09:33)
--- NOTE | 2017-05-17 15:14 | DIS ---
DATE OF ADMISSION: 05/16/2017 DATE OF DISCHARGE: 05/17/2017 DISCHARGE DIAGNOSES: 1. Acute epistaxis, secondarily to Xarelto, aspirin, and chemotherapy. 2. Coagulopathy, secondarily to Xarelto, chemotherapy, and aspirin. 3. 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 4. Pancytopenia, secondarily to chemotherapy. 5. Chronic obstructive pulmonary disease. 6. History of atrial fibrillation, on chronic anticoagulation with Xarelto. 7. Hypothyroidism. CONSULTATIONS: Dr. Kaur with ENT service. PERTINENT LAB AND X-RAY FINDINGS: Basic metabolic profile within normal limits. CBC showed a white blood cell count ranging between 2.4-2.5, hemoglobin ranging between 9.1-9.7, platelet count ranging between 57-64. PT 25.8 and INR 2.3. HOSPITAL COURSE: The patient was placed on observation floor after initially presenting with acute e pistaxis, managed in the emergency room with anterior and posterior nasal packing by ENT service. e patient's history is significant for chronic anticoagulation with Xarelto as well as chronic aspiri n therapy and current chemotherapy for advanced metastatic squamous cell carcinoma of the head and ne ck. The patient underwent nasal packing as stated previously with Surgicel/Gelfoam with hemostasis. H and H monitoring showed overall stable hemoglobin values and patient had no significant recurrence during observation. Current recommendations are to discontinue Xarelto and aspirin and follow up [facility] Service within 24 hours for evaluation and exchange of nasal packing. Overall, the patient re mained clinically stable throughout the hospital course and ready for discharge on 05/17/2017. DISCHARGE MEDICATIONS: 1. ProAir HFA 2 puffs inhaled q.4 hours p.r.n. 2. Lipitor 40 mg p.o. at bedtime. 3. Vitamin D3 2000 units p.o. daily. 4. Digoxin 125 mcg p.o. daily. 5. Colace 100 mg p.o. b.i.d. p.r.n. 6. Tambocor 50 mg p.o. b.i.d. 7. Breo Ellipta 1 inhalation q.a.m. 8. Monopril 10 mg p.o. b.i.d. 9. Hydrocodone/acetaminophen 7.5/325 mg per 15 mL, 15 mL p.o. q.4 hours p.r.n. pain. 10. DuoNeb 3 mL nebulized q.i.d. p.r.n. 11. Levothyroxine 75 mcg p.o. daily. 12. Claritin 10 mg p.o. daily. 13. Singulair 10 mg p.o. at bedtime. 14. Bactrim-DS 1 tablet p.o. b.i.d. 15. Testosterone cypionate 200 mg intramuscularly every 14 days. 16. Demadex 20 mg p.o. q.a.m. p.r.n. FOLLOWUP: 1. The patient may follow up with his primary care provider, Dr. Pema Olvera, within 7 days of discha rge. 2. The patient will follow up with Dr. Edy Kaur with ENT Service within 24 hours. 3. Patient will follow up with Dr. Laci Baker within 7 days of discharge. CONDITION ON DISCHARGE: Stable. ACTIVITY: Ad veronika. DIET: Heart healthy. CODE STATUS: FULL. DISPOSITION: Home, 05/17/2017.
== END 2017-05-17 11:16 | disposition home or self-care (01) ==
LOC: SCSER 00:20 → 2SW 04:15
PROVIDERS: ADMIT Hospitalist; ATTEND Hospitalist
DX: R04.0 Epistaxis (principal); D68.9 Coagulation defect, unspecified; C76.0 Malignant neoplasm of head, face and neck; D61.810 Antineoplastic chemotherapy induced pancytopenia; T45.1X5A Adverse effect of antineoplastic and immunosuppressive drugs, initial encounter; J44.9 Chronic obstructive pulmonary disease, unspecified; I48.91 Unspecified atrial fibrillation; E03.9 Hypothyroidism, unspecified; I25.10 Atherosclerotic heart disease of native coronary artery without angina pectoris; N40.0 Benign prostatic hyperplasia without lower urinary tract symptoms; I11.0 Hypertensive heart disease with heart failure; I50.9 Heart failure, unspecified; E29.1 Testicular hypofunction; Z79.01 Long term (current) use of anticoagulants; Z79.82 Long term (current) use of aspirin; Z79.2 Long term (current) use of antibiotics; Z79.51 Long term (current) use of inhaled steroids; Z79.899 Other long term (current) drug therapy; Z88.0 Allergy status to penicillin; Z88.1 Allergy status to other antibiotic agents; Z88.8 Allergy status to other drugs, medicaments and biological substances; Z95.828 Presence of other vascular implants and grafts; Z90.89 Acquired absence of other organs; Z90.79 Acquired absence of other genital organ(s); Z90.49 Acquired absence of other specified parts of digestive tract; Z85.47 Personal history of malignant neoplasm of testis; Z98.890 Other specified postprocedural states
CPT/HCPCS: 80053; 85007; 85025; 85027; 85610; 94640 ×5; 96374; 96375; 96376 ×2; 97139; 99284; G0378; 36415; A4216; J2405; J3010; J7620

== ENCOUNTER 2017-05-19 09:23 | Outpatient (CLI) | payer MEDICARE, OTHER ==
[2017-05-19] MEDS ORDERED: Iopamidol 370 76% 100 ML VIAL ONE (12:31)
== END 2017-05-19 09:24 | disposition home or self-care (01) ==
LOC: BICCT 09:23
PROVIDERS: ATTEND Internal Medicine Hematology & Oncology
DX: C76.0 Malignant neoplasm of head, face and neck (principal); C79.51 Secondary malignant neoplasm of bone; J98.4 Other disorders of lung; R91.8 Other nonspecific abnormal finding of lung field
CPT/HCPCS: 71260

== ENCOUNTER 2017-07-20 10:37 | Outpatient (CLI) | payer MEDICARE, OTHER | END 2017-07-20 10:38 | disposition home or self-care (01) | LOC: BICCT 10:37 | PROVIDERS: ATTEND Radiology Radiation Oncology | DX: C79.51 Secondary malignant neoplasm of bone (principal); C44.90 Unspecified malignant neoplasm of skin, unspecified; M54.5 Low back pain; M47.896 Other spondylosis, lumbar region; M43.16 Spondylolisthesis, lumbar region | CPT/HCPCS: 72131 ==

== ENCOUNTER 2017-08-11 12:20 | Outpatient (CLI) | payer MEDICARE, OTHER ==
[2017-08-11] MEDS ORDERED: ISOVUE-370 76%-LOCM 1 ML ONE (14:50)
== END 2017-08-11 12:21 | disposition home or self-care (01) ==
LOC: BICCT 12:20
PROVIDERS: ATTEND Internal Medicine Hematology & Oncology
DX: C76.0 Malignant neoplasm of head, face and neck (principal); R91.8 Other nonspecific abnormal finding of lung field; J98.11 Atelectasis; M89.9 Disorder of bone, unspecified
CPT/HCPCS: 71260

== ENCOUNTER 2017-09-27 10:37 | Emergency (ER) | payer MEDICARE, OTHER ==
[2017-09-27 11:51] LABS: Anion Gap 16 mmol/L (10-20); BUN (Urea Nitrogen) 11 mg/dL (8.4-25.7); Calc. Creatinine Clearance 0 mL/min (70-130); Calcium 9.9 mg/dL (7.8-10.44); Carbon Dioxide 30 mmol/L (23-31); Chloride 90 mmol/L (98-107); Estimated GFR-MDRD 87; Glucose 105 mg/dL (80-115); Sodium 132 mmol/L (136-145)
[2017-09-27 11:55] LABS: CKMB 1.9 ng/mL (0-6.6); Troponin I Less than 0.010 ng/mL (< 0.028)
--- NOTE | 2017-09-27 12:00 | RAD ---
AP VHEW CHEST: HISTORY: Dyspnea. FINDINGS: AP view chest is obtained on 09/27/17. Comparison is made to previous exam from 03/05/17. AP view chest demonstrates some elevation of the left hemidiaphragm. Small bilateral pleural effusio ns seen. Pulmonary vascular congestion is seen. There is a right jugular MediPort catheter in place . IMPRESSION: 1. Pulmonary vascular congestion and bilateral pleural effusions. 2. Bilateral airspace opacities concerning for bilateral pneumonia or vascular congestion and pulmon shree edema. Followup films to resolution recommended. POS: [facility]
[2017-09-27 12:08] LABS: #Basophils 0.1 thou/uL (0.0-0.2); #Eosinphils 0.1 thou/uL (0.0-0.7); #Lymphocytes 0.3 thou/uL (1.20-3.40); #Monocytes 0.3 thou/uL (0.11-0.59); #Neutrophils 2.6 thou/uL (1.40-6.50); %Basophils 1.5 % (0.0-1.0); %Eosinophils 1.6 % (0.0-10.0); %Lymphocytes 8.9 % (21.0-51.0); %Monocytes 9.4 % (0.0-10.0); %Neutrophils 78.6 % (42.0-75.0); Hemoglobin 10.4 g/dL (14.0-18.0); Hypochromia SLIGHT = 6-15 cells (100X) (0-5/hpf); Macrocytosis SLIGHT = 6-15 cells (100X) (0-5/hpf); Mean Corpuscular HGB CONC 35.5 g/dL (32.0-36.0); Mean Corpuscular Hemoglobin 35.9 pg (27.0-31.0); Mean Platelet Volume 6.6 fL (7.4-10.4); Microcytosis SLIGHT = 6-15 cells (100X) (0-5/hpf); Platelet Count 110 thou/uL (130-400); RBC Distribution Width 13.2 % (11.5-14.5); Red Blood Cell (RBC) Count 2.88 mill/uL (4.70-6.10); White Blood Cell (WBC) Count 3.3 thou/uL (4.8-10.8)
[2017-09-27 12:09] LABS: Anisocytosis SLIGHT = 6-15 cells (100X) (0-5/hpf); PLT Morphology Comment Appears Adequate
[2017-09-27] MEDS ORDERED: Morphine 5 MG/ML SYRINGE ONE (12:57)
[2017-09-27] MEDS ORDERED: HYDROcodone/Acetaminophen 10/325 mg Tablet ONE ×2 (13:03→14:02)
[2017-09-27] MEDS ORDERED: Levofloxacin 500 mg/D5W 100 ml Premix Bag ONE (13:39)
== END 2017-09-27 15:20 | disposition home or self-care (01) ==
LOC: SCSER 10:37
DX: J18.9 Pneumonia, unspecified organism (principal); I50.9 Heart failure, unspecified; J44.9 Chronic obstructive pulmonary disease, unspecified; E03.9 Hypothyroidism, unspecified; I48.91 Unspecified atrial fibrillation; I25.10 Atherosclerotic heart disease of native coronary artery without angina pectoris; N40.0 Benign prostatic hyperplasia without lower urinary tract symptoms
CPT/HCPCS: 36415; 71045; 80048; 82553; 83880; 84484; 85025; 86850; 86900; 86901; 87040; 93005; 96365; J2270; J1956; J7620